=== PATIENT | male | born 1960 | race Caucasian/White ===

== ENCOUNTER → 2019-05-25 | Outpatient (CLI) | payer BC ==
[~2019-05-25] VITALS: Ht 177.8 cm; Wt 108.8 kg
[2019-05-25] VITALS (9 sets, daily range): BP systolic 114–154; BP diastolic 62–96; PULSE 57–65
[~2019-05-25] MED LIST: ASPIRIN 32325 MG/TAB PO; FISH OIL1000 MG PO; LIPITOR20 MG PO; ZESTRIL 10MG10 MG PO; ZYLOPRIM 300MG300 MG PO
[2019-05-25 10:22] LABS: PROTHROMBIN TIME 11.9 SECONDS (9.7-12.8)
--- NOTE | 2019-05-25 10:40 | NUR ---
PT WAS TAKEN TO CT SCAN AND PLACED ON TABLE. MONITORING EQUIPMENT PLACED ON PT. IMAGES TAKEN.
--- NOTE | 2019-05-25 10:55 | NUR ---
MONITORING EQUIPMENT REMOVED. PT ASSISTED TO WHEELCHAIR AND BROUGHT TO RAD HOLDING.
--- NOTE | 2019-05-25 12:00 | NUR ---
PT TAKEN TO POV IN WHEELCHAIR DRIVEN BY
== END ==
LOC: COL.RAD 09:46
PROVIDERS: Internal Medicine Gastroenterology
DX: R94.5 Abnormal results of liver function studies (principal); K76.0 Fatty (change of) liver, not elsewhere classified
CPT/HCPCS: J2250; J3010